=== PATIENT | male | born 1960 | race Caucasian/White ===

== ENCOUNTER 2021-07-20 05:45 | Day surgery (SDC) | payer OTHER ==
[~2021-07-20] VITALS: Ht 175.3 cm; Wt 72.7 kg
[~2021-07-20 05:45] MED LIST: SODIUM CHLORIDE 0.9% 1,000 ML IV ONE
[2021-07-20] MEDS ORDERED: BENZOCAINE 20% 50 MCG/SPRAY 57 GM TP ONE (05:46)
[2021-07-20] MEDS ORDERED: LIDOCAINE 2% 30 ML JELLY TP ONE (05:46)
[2021-07-20] MEDS ORDERED: ALBUTEROL SULFATE 2.5 MG/0.5 ML NEB SOLUTION NEB ONE (05:46)
[2021-07-20 06:36] LABS: COVID AG,FIA SOURCE NASOPHARYNGEAL
[2021-07-20] MEDS ORDERED: FentaNYL CITRATE PF 100 MCG/2 ML VIAL ONE (07:32)
[2021-07-20] MEDS ORDERED: MIDAZOLAM HCL 5 MG/ML VIAL ONE (07:32)
[2021-07-20 07:42] LABS: GLUCOMETER DEV NAME(LOC) SDS.; GLUCOSE,POINT OF CARE 110 MG/DL (70-110)
[2021-07-20] MEDS ORDERED: METF-1185 PO (07:53)
[2021-07-20] MEDS ORDERED: CHOL-35 PO (07:53)
[2021-07-20] MEDS ORDERED: GLIM4 PO (07:53)
[2021-07-20] MEDS ORDERED: SITA50 PO (07:53)
[2021-07-20] MEDS ORDERED: TICA60TA PO (07:53)
[2021-07-20] MEDS ORDERED: MethylPREDNISolone SOD SUCC 125 MG/2 ML VIAL IVP ONE ×2 (08:30→08:45)
[2021-07-20] MEDS ORDERED: OXYGEN THERAPY IH SCH ×2 (20:00)
== END 2021-07-20 10:15 | disposition home or self-care (01) ==
LOC: SURGERY 05:45
PROVIDERS: ATTEND Internal Medicine Critical Care Medicine
DX: R05.3 Chronic cough (principal); R06.2 Wheezing; R04.2 Hemoptysis; R91.1 Solitary pulmonary nodule; J34.89 Other specified disorders of nose and nasal sinuses; J38.4 Edema of larynx; B37.0 Candidal stomatitis; E11.9 Type 2 diabetes mellitus without complications; Z79.84 Long term (current) use of oral hypoglycemic drugs; Z20.822 Contact with and (suspected) exposure to COVID-19
CPT/HCPCS: 31623; 31624; 71045; 82962; 87015; 87070; 87101; 87206; 87220; 87426; 88112; 88184; 88185; 88312; C9803; J2250; J2930; J3010; J7613